=== PATIENT | male | born 2000 | race Caucasian/White ===

== ENCOUNTER 2020-01-23 00:30 | Emergency (ER) | payer OTHER ==
[~2020-01-23] VITALS: Ht 185.4 cm; Wt 110.6 kg
[2020-01-23 01:19] LABS: BASO # 0.1 10^3/uL (0.0-0.2); BASO % 1.3 % (0.0-1.0); EOS # 0.2 10^3/uL (0.0-0.5); EOS % 3.1 % (0.0-3.0); HEMATOCRIT 44.3 % (42.0-52.0); HEMOGLOBIN 15.6 g/dl (13.5-17.5); LYMPH # 2.2 10^3/uL (1.5-5.0); LYMPH % 30.4 % (24.0-44.0); MEAN CORPUSCULAR HEMOGLOBIN 32.2 pg (27.0-33.0); MEAN CORPUSCULAR HGB CONC 35.2 g/dl (32.0-36.5); MEAN CORPUSCULAR VOLUME 91.3 fl (80.0-96.0); MONO # 0.7 10^3/uL (0.0-0.8); MONO % 9.1 % (0.0-5.0); NEUTROPHILS % 55.8 % (36.0-66.0); PLATELET COUNT, AUTOMATED 232 10^3/uL (150-450); RED BLOOD COUNT 4.85 10^6/uL (4.30-6.10); WHITE BLOOD COUNT 7.2 10^3/uL (4.0-10.0)
[2020-01-23 01:37] LABS: ERYTHROCYTE SEDIMENTATION RATE 3 mm/hr (0-15)
[2020-01-23 01:48] LABS: AMPHETAMINES LEVEL URINE NEGATIVE (NEGATIVE); BARBITURATES URINE NEGATIVE (NEGATIVE); BENZODIAZEPINES URINE NEGATIVE (NEGATIVE); CANNABINOIDS URINE NEGATIVE (NEGATIVE); COCAINE METABOLITE URINE NEGATIVE (NEGATIVE); METHADONE URINE NEGATIVE (NEGATIVE); OPIATES URINE NEGATIVE (NEGATIVE); PHENCYCLIDINE URINE NEGATIVE (NEGATIVE)
[2020-01-23 01:51] LABS: BLOOD UREA NITROGEN 13 MG/DL (7-18); CALCIUM LEVEL 9.6 MG/DL (8.5-10.1); CARBON DIOXIDE LEVEL 30 MEQ/L (21-32); CHLORIDE LEVEL 104 MEQ/L (98-107); CK-MB VALUE MASS < 1.0 NG/ML (<3.6); CPK CREATINE PHOSPHOKINASE 212 U/L (39-308); CREATININE FOR GFR 0.94 MG/DL (0.70-1.30); GLOMERULAR FILTRATION RATE > 60.0 (>60); GLUCOSE, FASTING 85 MG/DL (70-100); MB/CK RELATIVE INDEX 0.47 (< OR =4); POTASSIUM SERUM 4.1 MEQ/L (3.5-5.1); SODIUM LEVEL 139 MEQ/L (136-145); TROPONIN I < 0.02 NG/ML (< 0.10)
[2020-01-23 01:57] VITALS: BP 155/96
--- NOTE | 2020-01-23 10:29 | REP ---
CHEST: Two views. There is no evidence of acute infiltrate. No pleural effusion is seen. The heart is normal in size. The mediastinal silhouette is unremarkable. The visualized osseous structures are intact. IMPRESSION: No acute pulmonary disease. Electronically Signed by Carlin Coppola MD 01/23/2020 06:33 P
--- NOTE | 2020-01-23 20:33 | ECGEPIP ---
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
== END 2020-01-23 02:00 | disposition home or self-care (01) ==
LOC: M ED 00:30
DX: R07.89 Other chest pain (principal); I45.89 Other specified conduction disorders; F17.200 Nicotine dependence, unspecified, uncomplicated; Z82.49 Family history of ischemic heart disease and other diseases of the circulatory system

== ENCOUNTER 2020-11-05 21:29 | Emergency (ER) | payer OTHER ==
[~2020-11-05] VITALS: Ht 182.9 cm; Wt 110.6 kg
[2020-11-05 22:02] VITALS: BP 152/84
--- NOTE | 2020-11-06 05:36 | ECGEPIP ---
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
== END 2020-11-05 22:25 | disposition home or self-care (01) ==
LOC: EDBD 21:29 → M ED 21:29
DX: Z20.828 Contact with and (suspected) exposure to other viral communicable diseases (principal); F41.0 Panic disorder [episodic paroxysmal anxiety]; R06.02 Shortness of breath
CPT/HCPCS: 93005; 99284; U0003

== ENCOUNTER 2021-02-01 03:07 | Emergency (ER) | payer OTHER ==
[~2021-02-01] VITALS: Ht 188 cm; Wt 105.1 kg
--- NOTE | 2021-02-01 03:41 | ECGEPIP ---
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
--- NOTE | 2021-02-01 05:50 | REPVR ---
PROCEDURE INFORMATION: Exam: XR Chest Exam date and time: 02/01/2021 4:47 AM Age: 20 years old Clinical indication: Other: Dizziness TECHNIQUE: Imaging protocol: XR of the chest Views: 2 views. COMPARISON: CR Chest, 2 view PA, Lat 2020-01-23 01:00 FINDINGS: Lungs: Unremarkable. No consolidation. Pleural spaces: Unremarkable. No pleural effusion. No pneumothorax. Heart/Mediastinum: Unremarkable. No cardiomegaly. Bones/joints: Unremarkable. IMPRESSION: No acute findings. Electronically signed by: Simon Leija On 02/01/2021 05:50:40 AM
[2021-02-01 05:52] LABS: BASO # 0.1 10^3/uL (0.0-0.2); BASO % 0.9 % (0.0-1.0); EOS # 0.2 10^3/uL (0.0-0.5); EOS % 3.1 % (0.0-3.0); HEMATOCRIT 44.7 % (42.0-52.0); HEMOGLOBIN 15.8 g/dl (13.5-17.5); LYMPH # 2.5 10^3/uL (1.5-5.0); LYMPH % 37.7 % (24.0-44.0); MEAN CORPUSCULAR HEMOGLOBIN 31.7 pg (27.0-33.0); MEAN CORPUSCULAR HGB CONC 35.3 g/dl (32.0-36.5); MEAN CORPUSCULAR VOLUME 89.6 fl (80.0-96.0); MONO # 0.5 10^3/uL (0.0-0.8); NEUTROPHILS # 3.4 10^3/uL (1.5-8.5); PLATELET COUNT, AUTOMATED 239 10^3/uL (150-450); RED BLOOD COUNT 4.99 10^6/uL (4.30-6.10); WHITE BLOOD COUNT 6.7 10^3/uL (4.0-10.0)
[2021-02-01] MEDS ORDERED: NS 1,000 ML IV ONE (06:00)
[2021-02-01 06:21] LABS: BLOOD UREA NITROGEN 11 MG/DL (7-18); CARBON DIOXIDE LEVEL 31 MEQ/L (21-32); CHLORIDE LEVEL 102 MEQ/L (98-107); CREATININE FOR GFR 1.06 MG/DL (0.70-1.30); FREE T4 0.93 NG/DL (0.76-1.46); GLOMERULAR FILTRATION RATE > 60.0 (>60); GLUCOSE, FASTING 95 MG/DL (70-100); POTASSIUM SERUM 4.3 MEQ/L (3.5-5.1); SODIUM LEVEL 137 MEQ/L (136-145)
[2021-02-01 06:45] VITALS: BP 129/61
== END 2021-02-01 06:50 | disposition home or self-care (01) ==
LOC: M ED 03:07
DX: R55 Syncope and collapse (principal); R00.1 Bradycardia, unspecified; F17.200 Nicotine dependence, unspecified, uncomplicated

== ENCOUNTER 2021-02-27 13:20 | Emergency (ER) | payer OTHER ==
[~2021-02-27] VITALS: Ht 188 cm; Wt 103.4 kg
[2021-02-27 14:42] LABS: BASO # 0.1 10^3/uL (0.0-0.2); BASO % 1.3 % (0.0-1.0); EOS # 0.2 10^3/uL (0.0-0.5); EOS % 4.1 % (0.0-3.0); HEMATOCRIT 43.6 % (42.0-52.0); HEMOGLOBIN 15.5 g/dl (13.5-17.5); LYMPH # 1.6 10^3/uL (1.5-5.0); LYMPH % 34.9 % (24.0-44.0); MEAN CORPUSCULAR HEMOGLOBIN 32.1 pg (27.0-33.0); MEAN CORPUSCULAR HGB CONC 35.6 g/dl (32.0-36.5); MEAN CORPUSCULAR VOLUME 90.3 fl (80.0-96.0); MONO # 0.4 10^3/uL (0.0-0.8); NEUTROPHILS # 2.3 10^3/uL (1.5-8.5); NEUTROPHILS % 50.3 % (36.0-66.0); PLATELET COUNT, AUTOMATED 215 10^3/uL (150-450); RED BLOOD COUNT 4.83 10^6/uL (4.30-6.10); WHITE BLOOD COUNT 4.6 10^3/uL (4.0-10.0)
[2021-02-27 15:07] LABS: ALBUMIN 4.1 GM/DL (3.2-5.2); ALT/SGPT 23 U/L (12-78); BILIRUBIN,DIRECT 0.1 MG/DL (0.0-0.2); BILIRUBIN,TOTAL 0.6 MG/DL (0.2-1.0); BLOOD UREA NITROGEN 11 MG/DL (7-18); CALCIUM LEVEL 9.2 MG/DL (8.5-10.1); CARBON DIOXIDE LEVEL 30 MEQ/L (21-32); CHLORIDE LEVEL 104 MEQ/L (98-107); CREATININE FOR GFR 0.98 MG/DL (0.70-1.30); GLOMERULAR FILTRATION RATE > 60.0 (>60); GLUCOSE, FASTING 95 MG/DL (70-100); LIPASE 58 U/L (73-393); POTASSIUM SERUM 4.1 MEQ/L (3.5-5.1); SODIUM LEVEL 136 MEQ/L (136-145); TOTAL PROTEIN 7.4 GM/DL (6.4-8.2)
[2021-02-27 15:43] VITALS: BP 134/71
== END 2021-02-27 15:47 | disposition home or self-care (01) ==
LOC: M ED 13:20
DX: R10.9 Unspecified abdominal pain (principal); J30.2 Other seasonal allergic rhinitis; F17.220 Nicotine dependence, chewing tobacco, uncomplicated

== ENCOUNTER 2021-07-15 17:15 | Emergency (ER) | payer OTHER ==
[~2021-07-15] VITALS: Ht 188 cm; Wt 100.0 kg
[2021-07-15] MEDS ORDERED: GI COCKTAIL 50ML BTL(HYOSCYAMINE/MAALOX/LIDOCAINE VISCOUS)(1:3:1) PO ONE (19:45)
[2021-07-15] MEDS ORDERED: KETOROLAC 30 MG/ML 1ML VIAL IV ONE (20:20)
[2021-07-15] MEDS ORDERED: NS 1,000 ML IV ONE (20:20)
[2021-07-15] MEDS ORDERED: ISOVUE-370 76% 100ML VIAL As Ordered ONE (20:44)
[2021-07-15 20:53] LABS: BASO # 0.1 10^3/uL (0.0-0.2); BASO % 1.2 % (0.0-1.0); EOS # 0.2 10^3/uL (0.0-0.5); EOS % 2.4 % (0.0-3.0); HEMATOCRIT 42.5 % (42.0-52.0); HEMOGLOBIN 15.5 g/dl (13.5-17.5); LYMPH % 28.1 % (24.0-44.0); MEAN CORPUSCULAR HEMOGLOBIN 32.3 pg (27.0-33.0); MEAN CORPUSCULAR HGB CONC 36.5 g/dl (32.0-36.5); MEAN CORPUSCULAR VOLUME 88.5 fl (80.0-96.0); MONO # 0.5 10^3/uL (0.0-0.8); MONO % 6.8 % (2.0-8.0); NEUTROPHILS # 4.3 10^3/uL (1.5-8.5); NEUTROPHILS % 61.2 % (36.0-66.0); PLATELET COUNT, AUTOMATED 217 10^3/uL (150-450); WHITE BLOOD COUNT 6.9 10^3/uL (4.0-10.0)
--- NOTE | 2021-07-15 21:04 | REPVR ---
PROCEDURE INFORMATION: Exam: CT Neck With Contrast Exam date and time: 07/15/2021 8:46 PM Age: 21 years old Clinical indication: Dysphagia / difficulty swallowing; Additional info: Feels like something in throat, difficulty swallowing TECHNIQUE: Imaging protocol: Computed tomography images of the neck with contrast. Radiation optimization: All CT scans at this facility use at least one of these dose optimization techniques: automated exposure control; mA and/or kV adjustment per patient size (includes targeted exams where dose is matched to clinical indication); or iterative reconstruction. Contrast material: ISOVUE 370; Contrast volume: 75 ml; Contrast route: INTRAVENOUS (IV); COMPARISON: CR Chest, 2 view PA, Lat 02/01/2021 5:05 AM FINDINGS: Nasopharynx: Unremarkable. Oropharynx: Unremarkable. No significant tonsillar enlargement. Hypopharynx: Unremarkable. Larynx: Unremarkable. Normal epiglottis. Retropharyngeal space: Unremarkable. Submandibular/Parotid glands: Normal. Glands are normal in size. Thyroid: Normal. No enlarged or calcified nodules. Lymph nodes: Unremarkable. No lymphadenopathy. Trachea: Visualized trachea is unremarkable. Lungs: Unremarkable as visualized. Bones/joints: Unremarkable. No acute fracture. Soft tissues: Unremarkable. No significant soft tissue swelling. IMPRESSION: No acute findings. Electronically signed by: Natanael Cannon On 07/15/2021 21:04:33 PM
[2021-07-15 21:13] LABS: C REACTIVE PROTEIN QUANTITATIV < 0.30 MG/DL (0.00-0.30)
[2021-07-15 21:18] LABS: ERYTHROCYTE SEDIMENTATION RATE 3 mm/hr (0-15)
[2021-07-15 21:23] LABS: MONO REFLEX EBV COMP NEGATIVE (NEGATIVE)
[2021-07-15 21:55] VITALS: BP 140/73
[2021-07-17 16:12] LABS: EBV AB TO NUCLEAR ANTIGEN >600.0 U/mL (0.0-17.9); EBV VIRAL CAPSID AG IgM <36.0 U/mL (0.0-35.9)
== END 2021-07-15 21:56 | disposition home or self-care (01) ==
LOC: M ED 17:15
DX: R13.10 Dysphagia, unspecified (principal)
CPT/HCPCS: 70491; 80047; 85025; 85652; 86140; 86308; 86664; 86665; 96361; 96374; 99284; J1885; Q9967